=== PATIENT | female | born 1935 | race Caucasian/White ===

== ENCOUNTER 2017-10-25 22:50 | Inpatient (IN) | payer OTHER ==
[2017-10-26 00:36] LABS: HEMOGLOBIN 10.6 gm/dL (12-16); MANUAL DIFF REQUIRED? YES; RED CELL DISTRIBUTION WIDTH 19.6 % (11.5-20.0)
[2017-10-26 00:55] LABS: HEMATOCRIT 32.5 % (41.0-60); MEAN CELL VOLUME 95.2 fl (81-100); MEAN CORPUSCULAR HEMOGLOBIN 31.1 pg (27.0-31.0); MEAN CORPUSCULAR HGB CONC 32.7 pg (28.0-36.0); MEAN PLATELET VOLUME 7.9 fl; PLATELET COUNT 228 Th/cmm (150-400); RED BLOOD COUNT 3.41 Mil/cmm (3.80-5.20)
[2017-10-26 00:58] LABS: WHITE BLOOD COUNT 3.4 Th/cmm (4.8-10.8)
[2017-10-26 01:06] LABS: ANION GAP 6.4 (7.0-16.0); BUN - UREA NITROGEN 15 mg/dL (7-25); CALCIUM SERUM 8.6 mg/dL (8.6-10.3); CHLORIDE 90 mEq/L (98-107); CREATININE - SERUM 0.6 mg/dL (0.6-1.2); GLUCOSE 96 mg/dL (70-105); POTASSIUM SERUM 4.3 mEq/L (3.5-5.1); SODIUM SERUM 133 mEq/L (136-145)
[2017-10-26 01:20] LABS: CARBON DIOXIDE 40.9 mEq/L (21.0-31.0)
[2017-10-26] MEDS ORDERED: Haloperidol Lactate 5 mg/mL 1mL Vial IM STA (01:54)
[2017-10-26] MEDS ORDERED: Haloperidol Lactate 5 mg/mL 1mL Vial ONE (01:54)
[2017-10-26 02:42] LABS: BAND NEUTROPHILE 2 % (0-10); EOSINOPHIL 2 % (0-5); LYMPHOCYTE 18 % (20-50); MONOCYTE 10 % (2-10); NEUTROPHILS 68 % (40-80); PLATELET ESTIMATE ADEQUATE (NORMAL); TOTAL CELLS COUNTED 100
--- NOTE | 2017-10-26 03:00 | ED Physician Chart ---
ED Chief Complaint/HPI - Patient Information Date Seen:: 10/26/17 Time Seen:: 02:59 Chief Complaint:: Skin lesions History of Present Illness:: 82 yo female was brought from [facility] to ER for evaluation of skin lesions on the RLQ abdomen for a few days which were suspected as shingles. Allergies:: Allergies Allergy/AdvReac Type Severity Reaction Status Date / Time Sulfa (Sulfonamide Allergy Verified 10/25/17 23:58 Antibiotics) Vitals:: Vital Signs - 8 hr 10/25/17 23:25 Temp 98.2 F HR 88 RR 18 BP 133/73 O2 Sat % 100 ED Review of Systems - Review of Systems General/Constitutional: No fever, Weakness Skin: Skin lesions, Rash Head: No headache Eyes: No pain ENT: No nasal drainage Neck: No neck pain Cardio Vascular: No chest pain Pulmonary: No SOB GI: No nausea, No vomiting Musculoskeletal: No bone or joint pain Neurological: No focal symptoms ED Past Medical History - Past Medical History Past Medical History: HTN, Asthma/COPD, Thyroid disorder, Other (A-FIB, DYSPHAGIA, ULCERATIVE COLITIIS, DYSPNEA, RA) Social History: Non Smoker, No Alcohol, No Drug Use Family Medical History - Family Member Mother History Unknown: Yes ED Physical Exam - Physical Examination General/Constitutional: Awake Head: Atraumatic Eyes: PERRL ENMT: Nasal exam nl Neck: No nuchal rigidity Respiratory: No Wheeze/Rhonchi/Rales Cardio Vascular: RRR, No murmur, gallop, rubs, NL S1 S2 GI: No tenderness/rebounding/guarding Other GI comments:: RLQ, erythematous and small lesions Extremities: Full ROM Neuro/Psych: No focal deficits ED Labs/Radiology/EKG Results - Lab Results Results: Laboratory Tests 10/26/17 10/26/17 10/26/17 00:25 00:25 00:25 WBC 3.4 L RBC 3.41 L Hgb 10.6 L Hct 32.5 L MCV 95.2 MCH 31.1 H MCHC Differential 32.7 RDW 19.6 Plt Count 228 MPV 7.9 Band Neutrophils % 2 Neutrophils (Manual) 68 Lymphocytes 18 L Monocytes 10 Eosinophils 2 Platelet Estimate ADEQUATE Sodium 133 L Potassium 4.3 Chloride 90 L Carbon Dioxide 40.9 H Anion Gap 6.4 L BUN 15 Creatinine 0.6 Est GFR ( Amer) TNP Est GFR (Non-Af Amer) TNP BUN/Creatinine Ratio 25.0 Glucose 96 Whole Bld Lactic Acid 1.20 Calcium 8.6 ED Assessment - Assessment General Assessment: Hyponatremia Leukopenia Anemia of chronic disease Skin lesions possible shingles Agitation Assessment/Comments:: CBC, BMP, UA Haldol NS 1L iv bolus Caladryl lotion Admit to med surg for further evaluation and management ED Septic Shock - . Is Septic Shock (SBP<90, OR Lactate>4 mmol\L) present?: No - <6hrs of presentation: Vital Signs: Vital Signs - 8 hr 10/25/ 23:25 Temp 98.2 F HR 88 RR 18 BP 133/73 O2 Sat % 100 ED Reassessment (Disposition) - Reassessment Reassessment Condition:: Unchanged - Patient Disposition Discharge/Transfer:: Acute Care w/in this hosp Admitting Medical Physician:: Yissel Wills ED Discharge Plan - Patient Disposition Admit/Discharge/Transfer: Acute Care w/in this hosp
[2017-10-26] MEDS ORDERED: Sodium Chloride 0.9% 1,000 ML IV ONE (03:21)
[2017-10-26] MEDS: Sodium Chloride 0.9% 1,000 ML IV SCH (06:50)
[2017-10-26 07:08] LABS: CHOLESTEROL 99 mg/dL (<200); CREATININE KINASE 19 U/L (30-223); HDL -HIGH DENSITY LIPOPROTEIN 41 mg/dL (23-92); TRIGLYCERIDES 78 mg/dL (<150)
[2017-10-26] MEDS ORDERED: Pneumococcal Vaccine 0.5 mL Vial IM ONE (07:38)
[2017-10-26] MEDS ORDERED: Fleet Enema 135 mL RC PRN (08:27)
[2017-10-26] MEDS ORDERED: Non-Formulary Item 1 EA (Albuterol Sulfate [Proair Hfa] 2 PUFF) IH PRN (08:27)
[2017-10-26] MEDS ORDERED: Magnesium Hydroxide (MOM) 30 mL UDC PO PRN (08:27)
[2017-10-26] MEDS ORDERED: Albuterol Nebulizer 2.5mg/3mL HHN PRN (08:39)
[2017-10-26] MEDS ORDERED: Non-Formulary Item 1 EA (Fluticasone/Salmeterol [Advair 250-50 Diskus] 1 PUFF) INH SCH (09:00)
[2017-10-26] MEDS ORDERED: Non-Formulary Item 1 EA (Cranberry Fruit Concentrate [Cranberry] 450 MG) PO SCH (09:00)
[2017-10-26] MEDS: Mesalamine 250 mg ER Cap PO SCH ×2 (10:44→17:28)
[2017-10-26] MEDS: Potassium Chloride 20 mEq ER Tab PO SCH (10:45)
[2017-10-26] MEDS: Multivitamin Tab PO SCH (10:45)
--- NOTE | 2017-10-26 14:09 | Consultation ---
Consult Note - Consult Note Service Date: 10/26/17 Referring Physician: Yissel Wills Consult Note: PHYSICIAN Consultation Note: Date of Admission: 10/26/17 Purpose of Consultation: Rash. Chief Complaint: Patient ANG ALCANTAR was admitted to location Medical/ Surgical Unit I with CARDIOMYOPATHY,ANEMIA. History of Present Illness:83-year-old male with a past medical history of atrial fibrillation, dysphagia, difficulty walking, hypothyroidism, hypertension , hyperlipidemia, unspecified heart failure, ulcerative colitis, COPD, rheumatoid arthritis brought from nursing facility for evaluation of rash in right lower quadrant of the abdomen. Past Medical History: atrial fibrillation, dysphagia, difficulty walking, hypothyroidism, hypertension, hyperlipidemia, unspecified heart failure, ulcerative colitis, COPD, rheumatoid arthritis Allergies Allergy/AdvReac Type Severity Reaction Status Date / Time Sulfa (Sulfonamide Allergy Verified 10/25/17 23:58 Antibiotics) Vital Signs Temp 96.4 F 10/26/17 12:35 Pulse 70 10/26/17 12:35 Resp 18 10/26/17 12:35 BP 111/70 10/26/17 12:35 Pulse Ox 100 10/26/17 12:35 Intake & Output 10/25/17 10/26/17 10/26/17 18:59 06:59 18:59 Weight (lbs) 45.359 kg Other: # Voids 1 # Bowel Movements 0 Weight Source Bedscale Laboratory Results - last 24 hr 10/26/17 10/26/17 10/26/17 05:46 06:15 06:15 POC Glucose 86 Creatine Kinase 19 L Troponin I 0.02 Triglycerides 78 Cholesterol 99 LDL Cholesterol Direct 47 L HDL Cholesterol 41 TSH 10/26/17 06:15 POC Glucose Creatine Kinase Troponin I Triglycerides Cholesterol LDL Cholesterol Direct HDL Cholesterol TSH 8.79 H Home Medication Medication Instructions Recorded Type Acetaminophen [Tylenol] 650 mg PO Q4HR PRN 10/26/17 History Albuterol Sulfate [Proair Hfa] 2 puff IH Q4HR PRN 10/26/17 History Amiodarone [Cordarone] 200 mg PO DAILY 10/26/17 History Bisacodyl [Dulcolax 10 Mg Supp] 10 mg RC DAILY PRN 10/26/17 History Cranberry Fruit Concentrate 450 mg PO DAILY 10/26/17 History [Cranberry] Docusate Sodium [Colace] 100 mg PO DAILY 10/26/17 History Estrogens, Conjugated [Premarin] 0.9 mg PO DAILY 10/26/17 History Fleet Enema [Fleet Enema] 135 ml RC DAILY PRN 10/26/17 History Fluticasone/Salmeterol [Advair 1 puff INH BID 10/26/17 History 250-50 Diskus] Folic Acid [Folate*] 1 mg PO DAILY 10/26/17 History Furosemide 10 mg PO DAILY 10/26/17 History Levothyroxine [Synthroid] 0.1 mg PO QDAC 10/26/17 History Magnesium Hydroxide [Milk of 30 ml PO HS PRN 10/26/17 History Magnesia] Mesalamine [Pentasa] 500 mg PO BID 10/26/17 History Methotrexate [Methotrexate*] 10 mg PO Q7D 10/26/17 History Multivitamin [Theragran] 1 tab PO DAILY 10/26/17 History Potassium Chloride 20 meq PO DAILY 10/26/17 History Rivaroxaban [Xarelto] 15 mg PO DAILY 10/26/17 History Rosuvastatin Calcium 1 tab PO HS 10/26/17 History Zolpidem Tartrate 10 mg PO HS 10/26/17 History Current Medications Generic Name Dose Route Start Last Admin Trade Name Freq PRN Reason Stop Dose Admin Acetaminophen 650 mg 10/26/17 08:27 Tylenol PO 12/25/17 08:26 Q4H PRN Pain or Fever >101 Albuterol Sulfate 2.5 mg 10/26/17 08:39 Albuterol 2.5mg/3ml Neb [facility] 12/25/17 08:38 Q4HRT PRN Shortness of Breath Albuterol Sulfate 2.5 mg 10/26/17 13:00 Albuterol 2.5mg/3ml Neb Ud N 12/25/17 12:59 Q6HRT [facility] Amiodarone HCl 200 mg 10/26/17 09:00 10/26/17 10:44 Cordarone PO 12/25/17 08:59 Not Given DAILY [facility]AINE Atorvastatin Calcium 20 mg 10/26/17 21:00 Lipitor PO 12/25/17 20:59 HS [facility]AINE Bisacodyl 10 mg 10/26/17 08:27 Dulcolax 10 Mg Supp RC 12/25/17 08:26 DAILY PRN Constipation Budesonide 0.5 mg 10/26/17 19:00 Pulmicort HHN 12/25/17 18:59 BIDRT [facility]AINE Diphenhydramine/Calamine/Camphor 1 appl 10/26/17 09:00 10/26/17 10:50 Caladryl Lotion TP 12/25/17 08:59 1 appl BID [facility]AINE Administration Docusate Sodium 100 mg 10/26/17 09:00 10/26/17 10:44 Colace PO 12/25/17 08:59 Not Given DAILY [facility] Estrogens Conjugated 0.9 mg 10/26/17 09:00 10/26/17 10:30 Premarin PO 12/25/17 08:59 Not Given DAILY [facility] Folic Acid 1 mg 10/26/17 09:00 10/26/17 10:47 Folate PO 12/25/17 08:59 Not Given DAILY [facility] Furosemide 10 mg 10/26/17 09:00 10/26/17 10:43 Lasix PO 12/25/17 08:59 Not Given DAILY [facility] Sodium Chloride 1,000 mls @ 50 mls/hr 10/26/17 05:10 10/26/17 06:50 Nacl 0.9% IV 12/25/17 05:09 50 mls/hr .Q20H [facility]AINE Administration Levothyroxine Sodium 0.1 mg 10/27/17 07:30 Synthroid PO 12/26/17 07:29 QDAC [facility] Magnesium Hydroxide 30 ml 10/26/17 08:27 Milk Of Magnesia PO 12/25/17 08:26 HS PRN Constipation Mesalamine 500 mg 10/26/17 09:00 10/26/17 10:44 Pentasa PO 12/25/17 08:59 Not Given BID [facility] Methotrexate 10 mg 11/01/17 09:00 Methotrexate PO 12/31/17 08:59 Th@0900 [facility] Protocol Multivitamins/Vitamin C 1 tab 10/26/17 09:00 10/26/17 10:45 Theragran PO 12/25/17 08:59 Not Given DAILY [facility] Potassium Chloride 20 meq 10/26/17 09:00 10/26/17 10:45 Klor-Con PO 12/25/17 08:59 Not Given DAILY [facility] Rivaroxaban 15 mg 10/26/17 17:00 Xarelto PO 12/25/17 16:59 DAILY@1700 [facility] Sodium Phosphate 135 ml 10/26/17 08:27 Fleet Enema RC 12/25/17 08:26 DAILY PRN Constipation Zolpidem Tartrate 10 mg 10/26/17 08:46 Ambien PO 12/25/17 08:45 HS PRN Insomnia Review of Systems: A 12 point ROS was reviewed with the pertinent positive and negatives noted in the HPI. Social History Smoking Status Unknown if ever smoked Family Medical History Unknown. Physical Exam: General: Comfortable lying in bed not in acute distress. HEENT: Head: Normocephalic. Atraumatic. Face: Symmetrical. Oral cavity: Moist , pink tongue. Eyes: Pallor is present icterus. Neck: Supple, no JVD. No use of accessory neck muscles. Cardio: S1 and S2 within normal limits regular rhythm no murmur no gallop Respiratory: Vesicular breath sound no crackles or wheezing Abdominal: Soft, nontender nondistended pulses present. Genital/Urinary: Deferred Extremities: No cyanosis no clubbing no edema Neurological: Alert and awake and oriented. Skin: Some laceration wounds in the right leg. Right lower quadrant of abdomen : There are no itchy, nontender, tiny small pinkish red colored lesions in a group with erythematous base. Assessment: 1. Right lower quadrant abdominal rash, not typical of shingles. No vesicular lesion. However, as there is dermatomal distribution and the characteristic of rash, cannot rule out shingles. 2. Depression. 3. Hypothymism. 4. Hyperlipidemia Plan: Give oral acyclovir. Thank you, Dr Wills for involving me in taking care of Ms Alcantar. Johnson Colon Devesh N., M.D. [id number]
[2017-10-26] MEDS: Albuterol Nebulizer 2.5mg/3mL HHN SCH (19:00)
--- NOTE | 2017-10-26 19:21 | Consultation ---
DATE OF CONSULTATION: 10/26/2017 PATIENT OF: Dr. Wills. HISTORY AND PHYSICAL: This is an 82-year-old female patient who was brought from [facility] due to rash in the right groin. Possible shingles. PAST MEDICAL HISTORY: The patient has a history of cardiomyopathy, congestive heart failure, systolic dysfunction, chronic atrial fibrillation, dysphagia, protein-calorie malnutrition, hyperlipidemia, hypertension, hypothyroidism, COPD, ulcerative colitis, and rheumatoid arthritis. FAMILY HISTORY: Unremarkable. SOCIAL HISTORY: No history of smoking, alcohol abuse. ALLERGIES: None. PHYSICAL EXAMINATION: VITAL SIGNS: Blood pressure 138/70, pulse 70, and respirations 20. HEAD: Normocephalic. No lumps or bumps. EYES: Pupils are equal and reactive to light. Fundi show AV nicking, sclerae white, conjunctivae pink. NECK: Carotid 2+. Normal upstroke. JVD 10 cm above sternal angle. Thyroid not palpable. Lymph nodes not palpable. CHEST: Shows increased AP diameter. No kyphosis or scoliosis. LUNGS: Bilateral rales. Decreased breath sounds both the bases. HEART: PMI sixth intercostal space with lateral to midclavicular line. S1 irregular. S2, S3, S4. Soft systolic murmur. ABDOMEN: Soft. Liver and spleen not palpable. No organomegaly. Bowel sounds active. NEUROLOGIC: No focal neurological deficit. EXTREMITIES: Peripheral pulses 1+. No pedal edema. CLINICAL IMPRESSION: Rash, right lower abdomen, etiology unknown; congestive heart failure; systolic dysfunction; chronic cardiomyopathy; atrial fibrillation; dysphagia; protein-calorie malnutrition; hyperlipidemia; hypertension; hypothyroidism; COPD; ulcerative colitis; and rheumatoid arthritis. PLAN: We will get BNP level, echocardiogram and have Infectious Disease evaluation for the rash. JOB# [id number]
[2017-10-26] MEDS: Atorvastatin Calcium 10 MG TAB PO SCH (21:34)
--- NOTE | 2017-10-26 21:48 | History and Physical ---
History of Present Illness - HPI Chief Complaint: rash HPI: This is a 83-year-old male with a past medical history of atrial fibrillation, dysphagia, difficulty walking, hypothyroidism, hypertension, hyperlipidemia, unspecified heart failure, ulcerative colitis, COPD, rheumatoid arthritis brought from nursing facility for evaluation of rash in right lower quadrant of the abdomen. = = Vital Signs: Last Vital Signs Temp 96.4 F 10/26/17 16:00 Pulse 80 10/26/17 16:00 Resp 18 10/26/17 16:00 BP 140/71 10/26/17 16:00 Pulse Ox 100 10/26/17 16:00 Past Medical History Other History: atrial fibrillation, dysphagia, difficulty walking, hypothyroidism, hypertension , hyperlipidemia, unspecified heart failure, ulcerative colitis, COPD, rheumatoid arthritis Family Medical History - Family Member Mother History Unknown: Yes Social History Smoke: No Alcohol: None Drugs: None Lives: Longterm - Medications Home Medications: Home Medication Medication Instructions Recorded Type Acetaminophen [Tylenol] 650 mg PO Q4HR PRN 10/26/17 History Albuterol Sulfate [Proair Hfa] 2 puff IH Q4HR PRN 10/26/17 History Amiodarone [Cordarone] 200 mg PO DAILY 10/26/17 History Bisacodyl [Dulcolax 10 Mg Supp] 10 mg RC DAILY PRN 10/26/17 History Cranberry Fruit Concentrate 450 mg PO DAILY 10/26/17 History [Cranberry] Docusate Sodium [Colace] 100 mg PO DAILY 10/26/17 History Estrogens, Conjugated [Premarin] 0.9 mg PO DAILY 10/26/17 History Fleet Enema [Fleet Enema] 135 ml RC DAILY PRN 10/26/17 History Fluticasone/Salmeterol [Advair 1 puff INH BID 10/26/17 History 250-50 Diskus] Folic Acid [Folate*] 1 mg PO DAILY 10/26/17 History Furosemide 10 mg PO DAILY 10/26/17 History Levothyroxine [Synthroid] 0.1 mg PO QDAC 10/26/17 History Magnesium Hydroxide [Milk of 30 ml PO HS PRN 10/26/17 History Magnesia] Mesalamine [Pentasa] 500 mg PO BID 10/26/17 History Methotrexate [Methotrexate*] 10 mg PO Q7D 10/26/17 History Multivitamin [Theragran] 1 tab PO DAILY 10/26/17 History Potassium Chloride 20 meq PO DAILY 10/26/17 History Rivaroxaban [Xarelto] 15 mg PO DAILY 10/26/17 History Rosuvastatin Calcium 1 tab PO HS 10/26/17 History Zolpidem Tartrate 10 mg PO HS 10/26/17 History - Allergies Allergies/Adverse Reactions: Allergies Allergy/AdvReac Type Severity Reaction Status Date / Time Sulfa (Sulfonamide Allergy Verified 10/25/17 23:58 Antibiotics) Review of Systems - Review of Systems Constitutional: Report: No Significant Eyes: Report: No Significant ENT: Report: No Significant Respiratory: Report: No Significant Cardiovascular: Report: No Significant Skin: Report: Rash Neurological: Report: No Significant Physical Exam - Physical Exam HEENT: Report: Ears Nose Throat within normal limits Neck: Report: Within normal limits Abdomen: Report: Tender to palpation Skin: Report: Skin Rash noted - Lab Results All Lab Results last 24 hours: Laboratory Results - last 24 hr 10/26/17 10/26/17 10/26/17 05:46 06:15 06:15 POC Glucose 86 Creatine Kinase 19 L Troponin I 0.02 Triglycerides 78 Cholesterol 99 LDL Cholesterol Direct 47 L HDL Cholesterol 41 TSH 10/26/17 10/26/17 10/26/17 06:15 14:15 14:15 POC Glucose Creatine Kinase 11 L Troponin I 0.01 Triglycerides Cholesterol LDL Cholesterol Direct HDL Cholesterol TSH 8.79 H - Assessment Assessment: 1. Right lower quadrant abdominal rash r/o shingles 2. Depression. 3. Hypothymism. 4. Hyperlipidemia - Plan Plan: id consult continue current orders
[2017-10-27] MEDS: Albuterol Nebulizer 2.5mg/3mL HHN SCH ×4 (01:25→19:34)
[2017-10-27] MEDS: Levothyroxine 0.1 Mg Tab PO SCH (06:40)
[2017-10-27 07:14] LABS: ANION GAP 8.6 (7.0-16.0); BUN - UREA NITROGEN 12 mg/dL (7-25); CALCIUM SERUM 8.1 mg/dL (8.6-10.3); CARBON DIOXIDE 35.2 mEq/L (21.0-31.0); CHLORIDE 95 mEq/L (98-107); CREATININE - SERUM 0.5 mg/dL (0.6-1.2); GLUCOSE 79 mg/dL (70-105); POTASSIUM SERUM 3.8 mEq/L (3.5-5.1); SODIUM SERUM 135 mEq/L (136-145)
[2017-10-27] MEDS: Budesonide 0.5 Mg/2 mL Ud HHN SCH ×2 (07:51→19:34)
[2017-10-27] MEDS: Mesalamine 250 mg ER Cap PO SCH ×2 (09:16→17:07)
[2017-10-27] MEDS: Potassium Chloride 20 mEq ER Tab PO SCH (09:17)
[2017-10-27] MEDS: Multivitamin Tab PO SCH (09:17)
[2017-10-27] MEDS: Atorvastatin Calcium 10 MG TAB PO SCH (22:19)
[2017-10-28] MEDS: Albuterol Nebulizer 2.5mg/3mL HHN SCH ×3 (01:46→19:19)
--- NOTE | 2017-10-28 02:50 | Infectious Disease Prog Note ---
Infectious Disease Subjective - Review of Systems Service Date: 10/27/17 Subjective: No change, no fever. Infectious Disease Objective - Results Result Diagrams: 10/26/17 00:25 10/27/17 06:10 Recent Labs: Laboratory Last Values WBC 3.4 Th/cmm (4.8-10.8) L 10/26/17 00:25 RBC 3.41 Mil/cmm (3.80-5.20) L 10/26/17 00:25 Hgb 10.6 gm/dL (12-16) L 10/26/17 00:25 Hct 32.5 % (41.0-60) L 10/26/17 00:25 MCV 95.2 fl (81-100) 10/26/17 00:25 MCH 31.1 pg (27.0-31.0) H 10/26/17 00:25 MCHC Differential 32.7 pg (28.0-36.0) 10/26/17 00:25 RDW 19.6 % (11.5-20.0) 10/26/17 00:25 Plt Count 228 Th/cmm (150-400) 10/26/17 00:25 MPV 7.9 fl 10/26/17 00:25 Band Neutrophils % 2 % (0-10) 10/26/17 00:25 Neutrophils (Manual) 68 % (40-80) 10/26/17 00:25 Lymphocytes 18 % (20-50) L 10/26/17 00:25 Monocytes 10 % (2-10) 10/26/17 00:25 Eosinophils 2 % (0-5) 10/26/17 00:25 Platelet Estimate ADEQUATE (NORMAL) 10/26/17 00:25 Sodium 135 mEq/L (136-145) L 10/27/17 06:10 Potassium 3.8 mEq/L (3.5-5.1) 10/27/17 06:10 Chloride 95 mEq/L (98-107) L 10/27/17 06:10 Carbon Dioxide 35.2 mEq/L (21.0-31.0) H 10/27/17 06:10 Anion Gap 8.6 (7.0-16.0) 10/27/17 06:10 BUN 12 mg/dL (7-25) 10/27/17 06:10 Creatinine 0.5 mg/dL (0.6-1.2) L 10/27/17 06:10 Est GFR ( Amer) TNP 10/27/17 06:10 Est GFR (Non-Af Amer) TNP 10/27/17 06:10 BUN/Creatinine Ratio 24.0 10/27/17 06:10 Glucose 79 mg/dL (70-105) 10/27/17 06:10 POC Glucose 86 MG/DL (70 - 105) 10/26/17 05:46 Whole Bld Lactic Acid 1.20 mmol/L (0.60-1.99) 10/26/17 00:25 Calcium 8.1 mg/dL (8.6-10.3) L 10/27/17 06:10 Creatine Kinase < 10 U/L (30-223) L 10/26/17 22:10 Troponin I 0.01 ng/mL (0.01-0.05) 10/26/17 22:10 B-Natriuretic Peptide 373.0 pg/mL (5.0-100.0) H 10/27/17 06:10 Triglycerides 78 mg/dL (<150) 10/26/17 06:15 Cholesterol 99 mg/dL (<200) 10/26/17 06:15 LDL Cholesterol Direct 47 mg/dL (75-193) L 10/26/17 06:15 HDL Cholesterol 41 mg/dL (23-92) 10/26/17 06:15 TSH 8.79 uIU/ml (0.34-5.60) H 10/26/17 06:15 - Physical Exam Vitals and I&O: Vital Signs Temp 97.4 F 10/27/17 15:44 Pulse 91 10/28/17 01:47 Resp 18 10/28/17 01:47 BP 121/71 10/27/17 15:44 Pulse Ox 95 10/28/17 01:47 Intake & Output 10/27/17 10/27/17 10/28/17 06:59 18:59 06:59 Intake Total 450 Balance 450 Weight (lbs) 47.491 kg 47.446 kg Intake: Oral 450 Other: # Voids 2 3 # Bowel Movements 0 2 Stool Characteristics Soft Soft Weight Source Bedscale Bedscale Active Medications: Current Medications Acetaminophen (Tylenol) 650 mg PO Q4H PRN PRN Reason: Pain or Fever >101 Stop: 07/24/18 08:26 Acyclovir (Zovirax) 400 mg PO 5XD [facility]AINE Stop: 12/25/17 17:59 Last Admin: 10/27/17 22:19 Dose: 400 mg Albuterol Sulfate (Albuterol 2.5mg/3ml Neb Ud) 2.5 mg HHN Q4HRT PRN PRN Reason: Shortness of Breath Stop: 12/25/17 08:38 Albuterol Sulfate (Albuterol 2.5mg/3ml Neb Ud) 2.5 mg HHN Q6HRT [facility]AINE Stop: 12/25/17 12:59 Last Admin: 10/28/17 01:46 Dose: 2.5 mg Amiodarone HCl (Cordarone) 200 mg PO DAILY [facility] Stop: 12/25/17 08:59 Last Admin: 10/27/17 09:16 Dose: 200 mg Atorvastatin Calcium (Lipitor) 20 mg PO HS [facility] Stop: 12/25/17 20:59 Last Admin: 10/27/17 22:19 Dose: 20 mg Bisacodyl (Dulcolax 10 Mg Supp) 10 mg RC DAILY PRN PRN Reason: Constipation Stop: 12/25/17 08:26 Budesonide (Pulmicort) 0.5 mg HHN BIDRT [facility]INE Stop: 12/25/17 18:59 Last Admin: 10/27/17 19:34 Dose: 0.5 mg Diphenhydramine/Calamine/Camphor (Caladryl Lotion) 1 appl TP BID [facility] Stop: 12/25/17 08:59 Last Admin: 10/27/17 17:08 Dose: 1 appl Docusate Sodium (Colace) 100 mg PO DAILY [facility] Stop: 12/25/17 08:59 Last Admin: 10/27/17 09:16 Dose: 100 mg Estrogens Conjugated (Premarin) 0.9 mg PO DAILY [facility] Stop: 12/25/17 08:59 Last Admin: 10/27/17 13:24 Dose: 0.9 mg Folic Acid (Folate) 1 mg PO DAILY [facility] Stop: 12/25/17 08:59 Last Admin: 10/27/17 09:17 Dose: 1 mg Furosemide (Lasix) 10 mg PO DAILY [facility] Stop: 12/25/17 08:59 Last Admin: 10/27/17 09:17 Dose: 10 mg Sodium Chloride (Nacl 0.9%) 1,000 mls @ 50 mls/hr IV .Q20H [facility] Stop: 12/25/17 05:09 Last Infusion: 10/26/17 17:56 Dose: 50 mls/hr Levothyroxine Sodium (Synthroid) 0.1 mg PO QDAC [facility] Stop: 12/26/17 07:29 Last Admin: 10/27/17 06:40 Dose: 0.1 mg Magnesium Hydroxide (Milk Of Magnesia) 30 ml PO HS PRN PRN Reason: Constipation Stop: 12/25/17 08:26 Mesalamine (Pentasa) 500 mg PO BID [facility] Stop: 12/25/17 08:59 Last Admin: 10/27/17 17:07 Dose: 500 mg Methotrexate (Methotrexate) 10 mg PO Th@0900 [facility] PRN Reason: Protocol Stop: 12/31/17 08:59 Multivitamins/Vitamin C (Theragran) 1 tab PO DAILY [facility] Stop: 12/25/17 08:59 Last Admin: 10/27/17 09:17 Dose: 1 tab Mupirocin (Bactroban Oint) 1 appl NS BID [facility] Stop: 11/01/17 17:01 Potassium Chloride (Klor-Con) 20 meq PO DAILY [facility] Stop: 12/25/17 08:59 Last Admin: 10/27/17 09:17 Dose: 20 meq Rivaroxaban (Xarelto) 15 mg PO DAILY@1700 [facility] Stop: 12/25/17 16:59 Last Admin: 10/27/17 17:08 Dose: 15 mg Sodium Phosphate (Fleet Enema) 135 ml RC DAILY PRN PRN Reason: Constipation Stop: 12/25/17 08:26 Zolpidem Tartrate (Ambien) 10 mg PO HS PRN PRN Reason: Insomnia Stop: 12/25/17 08:45 Last Admin: 10/27/17 22:18 Dose: 10 mg General: no acute distress, well developed, well nourished HEENT: atraumatic, normocephalic, moist mucous membrane Neck: supple, no thyromegaly Cardiovascular: S1S2, regular Lungs: clear to auscultation bilaterally, clear to percussion Abdomen: soft, no tender, no distended, no mass, no hepatomegaly Extremities: no cyanosis, no clubbing, no edema Neurological: awake, alert Skin: intact Infectious Disease Assmt/Plan - Assessment Assessment: 1. Right lower quadrant abdominal rash, not typical of shingles. No vesicular lesion. However, as there is dermatomal distribution and the characteristic of rash, cannot rule out shingles. 2. Depression. 3. Hypothymism. 4. Hyperlipidemia - Plan Plan: Continue Acyclovir. Nutritional Asmnt/Malnutr-PDOC - Dietary Evaluation Malnutrition Findings (Please click <Entered> for more info): Nutritional Asmnt/Malnutrition Start: 10/26/17 17: 09 Text: Status: Complete Freq: Document 10/26/17 17:09 [email or web address] (Rec: 10/26/17 17:27 [id number]) Nutritional Asmnt/Malnutrition Patient General Information Nutritional Screening High Risk Diagnosis cardiomyopathy, anemia Pertinent Medical Hx/Surgical Hx medical hx not indicated in ER physician report at this time Subjective Information Pt seen lying in bed at time of visit, seemed drowsy, not able to comminucate. Pureed diet started at lunch. Current Diet Order/ Nutrition Support pureed GI Symptoms Skin Integrity/Comment: skin discorloration to lower leg, rash reddened Estimated Nutritional Goals BEE in Kcals: Using Current wt Calories/Kcals/Kg 27-32 Kcals Calculated [id number] Protein: Using Current wt Protein g/k-1.2 Protein Calculated 45-54 Fluid: ml 1215-1440ml (1ml/kcal) Nutritional Problem No current Nutrition Prob Problem No nutrition problem at this time Malnutrition Alert Protein-Calorie Malnutrition N/A Is there a minimum of two criteria No selected? Query Text:Check all the applicable criteria. A minimum of two criteria are recommended for diagnosis of either severe or non-severe malnutrition. Intervention/Recommendation Comments 1. Continue with current diet as ordered. Assist pt with meal as needed. 2. Monitor PO intake, wt, labs and skin integrity 3. F/U as high risk in 2-3 days, 10/28-10/29 Expected Outcomes/Goals Expected Outcomes/Goals 1. PO intake to meet at least 75% of nutritional needs. 2. Wt stability, skin to remain intact, labs to approach WNL.
[2017-10-28] MEDS: Levothyroxine 0.1 Mg Tab PO SCH (06:33)
[2017-10-28] MEDS: Budesonide 0.5 Mg/2 mL Ud HHN SCH ×2 (07:58→19:18)
--- NOTE | 2017-10-28 11:39 | General Progress Note ---
Subjective - Review of Systems Events since last encounter: no change no fever Objective - Results Result Diagrams: 10/26/17 00:25 10/27/17 06:10 Recent Labs: Laboratory Last Values WBC 3.4 Th/cmm (4.8-10.8) L 10/26/17 00:25 RBC 3.41 Mil/cmm (3.80-5.20) L 10/26/17 00:25 Hgb 10.6 gm/dL (12-16) L 10/26/17 00:25 Hct 32.5 % (41.0-60) L 10/26/17 00:25 MCV 95.2 fl (81-100) 10/26/17 00:25 MCH 31.1 pg (27.0-31.0) H 10/26/17 00:25 MCHC Differential 32.7 pg (28.0-36.0) 10/26/17 00:25 RDW 19.6 % (11.5-20.0) 10/26/17 00:25 Plt Count 228 Th/cmm (150-400) 10/26/17 00:25 MPV 7.9 fl 10/26/17 00:25 Band Neutrophils % 2 % (0-10) 10/26/17 00:25 Neutrophils (Manual) 68 % (40-80) 10/26/17 00:25 Lymphocytes 18 % (20-50) L 10/26/17 00:25 Monocytes 10 % (2-10) 10/26/17 00:25 Eosinophils 2 % (0-5) 10/26/17 00:25 Platelet Estimate ADEQUATE (NORMAL) 10/26/17 00:25 Sodium 135 mEq/L (136-145) L 10/27/17 06:10 Potassium 3.8 mEq/L (3.5-5.1) 10/27/17 06:10 Chloride 95 mEq/L (98-107) L 10/27/17 06:10 Carbon Dioxide 35.2 mEq/L (21.0-31.0) H 10/27/17 06:10 Anion Gap 8.6 (7.0-16.0) 10/27/17 06:10 BUN 12 mg/dL (7-25) 10/27/17 06:10 Creatinine 0.5 mg/dL (0.6-1.2) L 10/27/17 06:10 Est GFR ( Amer) TNP 10/27/17 06:10 Est GFR (Non-Af Amer) TNP 10/27/17 06:10 BUN/Creatinine Ratio 24.0 10/27/17 06:10 Glucose 79 mg/dL (70-105) 10/27/17 06:10 POC Glucose 86 MG/DL (70 - 105) 10/26/17 05:46 Whole Bld Lactic Acid 1.20 mmol/L (0.60-1.99) 10/26/17 00:25 Calcium 8.1 mg/dL (8.6-10.3) L 10/27/17 06:10 Creatine Kinase < 10 U/L (30-223) L 10/26/17 22:10 Troponin I 0.01 ng/mL (0.01-0.05) 10/26/17 22:10 B-Natriuretic Peptide 373.0 pg/mL (5.0-100.0) H 10/27/17 06:10 Triglycerides 78 mg/dL (<150) 10/26/17 06:15 Cholesterol 99 mg/dL (<200) 10/26/17 06:15 LDL Cholesterol Direct 47 mg/dL (75-193) L 10/26/17 06:15 HDL Cholesterol 41 mg/dL (23-92) 10/26/17 06:15 TSH 8.79 uIU/ml (0.34-5.60) H 10/26/17 06:15 - Physical Exam Vitals and I&O: Vital Signs Temp 98.0 F 10/28/17 07:43 Pulse 71 10/28/17 08:11 Resp 18 10/28/17 08:11 BP 136/80 10/28/17 07:43 Pulse Ox 96 10/28/17 08:11 Intake & Output 10/27/17 10/28/17 10/28/17 18:59 06:59 18:59 Intake Total 450 200 Balance 450 200 Weight (lbs) 47.446 kg 46.72 kg Intake: Oral 450 200 Other: # Voids 3 3 # Bowel Movements 2 Stool Characteristics Soft Weight Source Bedscale Bedscale Active Medications: Current Medications Acetaminophen (Tylenol) 650 mg PO Q4H PRN PRN Reason: Pain or Fever >101 Stop: 12/25/17 08:26 Acyclovir (Zovirax) 400 mg PO 5XD [facility] Stop: 12/25/17 17:59 Last Admin: 10/28/17 06:33 Dose: 400 mg Albuterol Sulfate (Albuterol 2.5mg/3ml Neb Ud) 2.5 mg HHN Q4HRT PRN PRN Reason: Shortness of Breath Stop: 12/25/17 08:38 Albuterol Sulfate (Albuterol 2.5mg/3ml Neb Ud) 2.5 mg HHN Q6HRT [facility] Stop: 12/25/17 12:59 Last Admin: 10/28/17 07:57 Dose: 2.5 mg Amiodarone HCl (Cordarone) 200 mg PO DAILY [facility] Stop: 12/25/17 08:59 Last Admin: 10/27/17 09:16 Dose: 200 mg Atorvastatin Calcium (Lipitor) 20 mg PO HS [facility] Stop: 12/25/17 20:59 Last Admin: 10/27/17 22:19 Dose: 20 mg Bisacodyl (Dulcolax 10 Mg Supp) 10 mg RC DAILY PRN PRN Reason: Constipation Stop: 12/25/17 08:26 Budesonide (Pulmicort) 0.5 mg HHN BIDRT [facility] Stop: 12/25/17 18:59 Last Admin: 10/28/17 07:58 Dose: 0.5 mg Diphenhydramine/Calamine/Camphor (Caladryl Lotion) 1 appl TP BID [facility] Stop: 12/25/17 08:59 Last Admin: 10/27/17 17:08 Dose: 1 appl Docusate Sodium (Colace) 100 mg PO DAILY [facility] Stop: 12/25/17 08:59 Last Admin: 10/27/17 09:16 Dose: 100 mg Estrogens Conjugated (Premarin) 0.9 mg PO DAILY [facility] Stop: 12/25/17 08:59 Last Admin: 10/27/17 13:24 Dose: 0.9 mg Folic Acid (Folate) 1 mg PO DAILY [facility] Stop: 12/25/17 08:59 Last Admin: 10/27/17 09:17 Dose: 1 mg Furosemide (Lasix) 10 mg PO DAILY [facility] Stop: 12/25/17 08:59 Last Admin: 10/27/17 09:17 Dose: 10 mg Sodium Chloride (Nacl 0.9%) 1,000 mls @ 50 mls/hr IV .Q20H [facility] Stop: 12/25/17 05:09 Last Infusion: 10/26/17 17:56 Dose: 50 mls/hr Levothyroxine Sodium (Synthroid) 0.1 mg PO QDAC [facility] Stop: 12/26/17 07:29 Last Admin: 10/28/17 06:33 Dose: 0.1 mg Magnesium Hydroxide (Milk Of Magnesia) 30 ml PO HS PRN PRN Reason: Constipation Stop: 12/25/17 08:26 Mesalamine (Pentasa) 500 mg PO BID [facility] Stop: 12/25/17 08:59 Last Admin: 10/27/17 17:07 Dose: 500 mg Methotrexate (Methotrexate) 10 mg PO Th@0900 [facility] PRN Reason: Protocol Stop: 12/31/17 08:59 Multivitamins/Vitamin C (Theragran) 1 tab PO DAILY [facility] Stop: 12/25/17 08:59 Last Admin: 10/27/17 09:17 Dose: 1 tab Mupirocin (Bactroban Oint) 1 appl NS BID [facility] Stop: 11/01/17 17:01 Potassium Chloride (Klor-Con) 20 meq PO DAILY [facility] Stop: 12/25/17 08:59 Last Admin: 10/27/17 09:17 Dose: 20 meq Rivaroxaban (Xarelto) 15 mg PO DAILY@1700 [facility] Stop: 12/25/17 16:59 Last Admin: 10/27/17 17:08 Dose: 15 mg Sodium Phosphate (Fleet Enema) 135 ml RC DAILY PRN PRN Reason: Constipation Stop: 12/25/17 08:26 Zolpidem Tartrate (Ambien) 10 mg PO HS PRN PRN Reason: Insomnia Stop: 12/25/17 08:45 Last Admin: 10/27/17 22:18 Dose: 10 mg Assessment/Plan - Assessment Assessment: 1. Right lower quadrant abdominal rash r/o shingles 2. Depression. 3. Hypothymism. 4. Hyperlipidemia - Plan Plan: id consult continue current orders Nutritional Asmnt/Malnutr-PDOC - Dietary Evaluation Malnutrition Findings (Please click <Entered> for more info): Nutritional Asmnt/Malnutrition Start: 10/26/17 17: 09 Text: Status: Complete Freq: Document 10/26/17 17:09 LCHENG (Rec: 10/26/17 17:27 LCHENG [email or web address]) Nutritional Asmnt/Malnutrition Patient General Information Nutritional Screening High Risk Diagnosis cardiomyopathy, anemia Pertinent Medical Hx/Surgical Hx medical hx not indicated in ER physician report at this time Subjective Information Pt seen lying in bed at time of visit, seemed drowsy, not able to comminucate. Pureed diet started at lunch. Current Diet Order/ Nutrition Support pureed GI Symptoms Skin Integrity/Comment: skin discorloration to lower leg, rash reddened Estimated Nutritional Goals BEE in Kcals: Using Current wt Calories/Kcals/Kg 27-32 Kcals Calculated 3909-7125 Protein: Using Current wt Protein g/k-1.2 Protein Calculated 45-54 Fluid: ml 1215-1440ml (1ml/kcal) Nutritional Problem No current Nutrition Prob Problem No nutrition problem at this time Malnutrition Alert Protein-Calorie Malnutrition N/A Is there a minimum of two criteria No selected? Query Text:Check all the applicable criteria. A minimum of two criteria are recommended for diagnosis of either severe or non-severe malnutrition. Intervention/Recommendation Comments 1. Continue with current diet as ordered. Assist pt with meal as needed. 2. Monitor PO intake, wt, labs and skin integrity 3. F/U as high risk in 2-3 days, 10/28-10/29 Expected Outcomes/Goals Expected Outcomes/Goals 1. PO intake to meet at least 75% of nutritional needs. 2. Wt stability, skin to remain intact, labs to approach WNL.
[2017-10-28] MEDS: Mesalamine 250 mg ER Cap PO SCH (11:53)
[2017-10-28] MEDS: Multivitamin Tab PO SCH (11:54)
[2017-10-28] MEDS: Potassium Chloride 20 mEq ER Tab PO SCH (11:55)
--- NOTE | 2017-10-28 14:30 | Infectious Disease Prog Note ---
Infectious Disease Subjective - Review of Systems Service Date: 10/28/17 Subjective: No change, no fever. Infectious Disease Objective - Results Result Diagrams: 10/26/17 00:25 10/27/17 06:10 Recent Labs: Laboratory Last Values WBC 3.4 Th/cmm (4.8-10.8) L 10/26/17 00:25 RBC 3.41 Mil/cmm (3.80-5.20) L 10/26/17 00:25 Hgb 10.6 gm/dL (12-16) L 10/26/17 00:25 Hct 32.5 % (41.0-60) L 10/26/17 00:25 MCV 95.2 fl (81-100) 10/26/17 00:25 MCH 31.1 pg (27.0-31.0) H 10/26/17 00:25 MCHC Differential 32.7 pg (28.0-36.0) 10/26/17 00:25 RDW 19.6 % (11.5-20.0) 10/26/17 00:25 Plt Count 228 Th/cmm (150-400) 10/26/17 00:25 MPV 7.9 fl 10/26/17 00:25 Band Neutrophils % 2 % (0-10) 10/26/17 00:25 Neutrophils (Manual) 68 % (40-80) 10/26/17 00:25 Lymphocytes 18 % (20-50) L 10/26/17 00:25 Monocytes 10 % (2-10) 10/26/17 00:25 Eosinophils 2 % (0-5) 10/26/17 00:25 Platelet Estimate ADEQUATE (NORMAL) 10/26/17 00:25 Sodium 135 mEq/L (136-145) L 10/27/17 06:10 Potassium 3.8 mEq/L (3.5-5.1) 10/27/17 06:10 Chloride 95 mEq/L (98-107) L 10/27/17 06:10 Carbon Dioxide 35.2 mEq/L (21.0-31.0) H 10/27/17 06:10 Anion Gap 8.6 (7.0-16.0) 10/27/17 06:10 BUN 12 mg/dL (7-25) 10/27/17 06:10 Creatinine 0.5 mg/dL (0.6-1.2) L 10/27/17 06:10 Est GFR ( Amer) TNP 10/27/17 06:10 Est GFR (Non-Af Amer) TNP 10/27/17 06:10 BUN/Creatinine Ratio 24.0 10/27/17 06:10 Glucose 79 mg/dL (70-105) 10/27/17 06:10 POC Glucose 86 MG/DL (70 - 105) 10/26/17 05:46 Whole Bld Lactic Acid 1.20 mmol/L (0.60-1.99) 10/26/17 00:25 Calcium 8.1 mg/dL (8.6-10.3) L 10/27/17 06:10 Creatine Kinase < 10 U/L (30-223) L 10/26/17 22:10 Troponin I 0.01 ng/mL (0.01-0.05) 10/26/17 22:10 B-Natriuretic Peptide 373.0 pg/mL (5.0-100.0) H 10/27/17 06:10 Triglycerides 78 mg/dL (<150) 10/26/17 06:15 Cholesterol 99 mg/dL (<200) 10/26/17 06:15 LDL Cholesterol Direct 47 mg/dL (75-193) L 10/26/17 06:15 HDL Cholesterol 41 mg/dL (23-92) 10/26/17 06:15 TSH 8.79 uIU/ml (0.34-5.60) H 10/26/17 06:15 - Physical Exam Vitals and I&O: Vital Signs Temp 98.9 F 10/28/17 12:00 Pulse 61 10/28/17 13:22 Resp 18 10/28/17 13:22 BP 145/58 10/28/17 12:00 Pulse Ox 93 10/28/17 13:22 Intake & Output 10/27/17 10/28/17 10/28/17 18:59 06:59 18:59 Intake Total 450 200 Balance 450 200 Weight (lbs) 47.446 kg 46.72 kg Intake: Oral 450 200 Other: # Voids 3 3 # Bowel Movements 2 Stool Characteristics Soft Weight Source Bedscale Bedscale Active Medications: Current Medications Acetaminophen (Tylenol) 650 mg PO Q4H PRN PRN Reason: Pain or Fever >101 Stop: 07/24/18 08:26 Acyclovir (Zovirax) 400 mg PO 5XD [facility] Stop: 12/25/17 17:59 Last Admin: 10/28/17 11:53 Dose: 400 mg Albuterol Sulfate (Albuterol 2.5mg/3ml Neb Ud) 2.5 mg HHN Q4HRT PRN PRN Reason: Shortness of Breath Stop: 12/25/17 08:38 Albuterol Sulfate (Albuterol 2.5mg/3ml Neb Ud) 2.5 mg HHN Q6HRT [facility] Stop: 12/25/17 12:59 Last Admin: 10/28/17 07:57 Dose: 2.5 mg Amiodarone HCl (Cordarone) 200 mg PO DAILY [facility] Stop: 12/25/17 08:59 Last Admin: 10/28/17 11:54 Dose: 200 mg Atorvastatin Calcium (Lipitor) 20 mg PO HS [facility] Stop: 12/25/17 20:59 Last Admin: 10/27/17 22:19 Dose: 20 mg Bisacodyl (Dulcolax 10 Mg Supp) 10 mg RC DAILY PRN PRN Reason: Constipation Stop: 12/25/17 08:26 Budesonide (Pulmicort) 0.5 mg HHN BIDRT [facility] Stop: 12/25/17 18:59 Last Admin: 10/28/17 07:58 Dose: 0.5 mg Diphenhydramine/Calamine/Camphor (Caladryl Lotion) 1 appl TP BID [facility] Stop: 12/25/17 08:59 Last Admin: 10/27/17 17:08 Dose: 1 appl Docusate Sodium (Colace) 100 mg PO DAILY [facility] Stop: 12/25/17 08:59 Last Admin: 10/28/17 11:54 Dose: 100 mg Estrogens Conjugated (Premarin) 0.9 mg PO DAILY [facility] Stop: 12/25/17 08:59 Last Admin: 10/27/17 13:24 Dose: 0.9 mg Folic Acid (Folate) 1 mg PO DAILY [facility] Stop: 12/25/17 08:59 Last Admin: 10/28/17 11:54 Dose: 1 mg Furosemide (Lasix) 10 mg PO DAILY [facility] Stop: 12/25/17 08:59 Last Admin: 10/28/17 11:58 Dose: 10 mg Sodium Chloride (Nacl 0.9%) 1,000 mls @ 50 mls/hr IV .Q20H [facility] Stop: 12/25/17 05:09 Last Infusion: 10/26/17 17:56 Dose: 50 mls/hr Levothyroxine Sodium (Synthroid) 0.1 mg PO QDAC [facility] Stop: 12/26/17 07:29 Last Admin: 10/28/17 06:33 Dose: 0.1 mg Magnesium Hydroxide (Milk Of Magnesia) 30 ml PO HS PRN PRN Reason: Constipation Stop: 12/25/17 08:26 Mesalamine (Pentasa) 500 mg PO BID [facility] Stop: 12/25/17 08:59 Last Admin: 10/28/17 11:53 Dose: 500 mg Methotrexate (Methotrexate) 10 mg PO Th@0900 [facility] PRN Reason: Protocol Stop: 12/31/17 08:59 Multivitamins/Vitamin C (Theragran) 1 tab PO DAILY [facility] Stop: 12/25/17 08:59 Last Admin: 10/28/17 11:54 Dose: 1 tab Mupirocin (Bactroban Oint) 1 appl NS BID [facility] Stop: 11/01/17 17:01 Potassium Chloride (Klor-Con) 20 meq PO DAILY [facility] Stop: 12/25/17 08:59 Last Admin: 10/28/17 11:55 Dose: 20 meq Rivaroxaban (Xarelto) 15 mg PO DAILY@1700 [facility] Stop: 12/25/17 16:59 Last Admin: 10/27/17 17:08 Dose: 15 mg Sodium Phosphate (Fleet Enema) 135 ml RC DAILY PRN PRN Reason: Constipation Stop: 12/25/17 08:26 Zolpidem Tartrate (Ambien) 10 mg PO HS PRN PRN Reason: Insomnia Stop: 12/25/17 08:45 Last Admin: 10/27/17 22:18 Dose: 10 mg General: no acute distress, well developed, well nourished HEENT: atraumatic, normocephalic, PERRLA, EOMI Neck: supple, no thyromegaly Cardiovascular: S1S2, regular Lungs: clear to auscultation bilaterally, clear to percussion Abdomen: soft, no tender, no distended Extremities: no cyanosis, no clubbing, no edema Neurological: awake, alert, oriented Skin: intact, rash (RLQ improving, bronish in color.) Infectious Disease Assmt/Plan - Assessment Assessment: 1. Right lower quadrant abdominal rash, not typical of shingles. No vesicular lesion. However, as there is dermatomal distribution and the characteristic of rash, cannot rule out shingles. 2. Depression. 3. Hypothymism. 4. Hyperlipidemia - Plan Plan: Continue Acyclovir. Nutritional Asmnt/Malnutr-PDOC - Dietary Evaluation Malnutrition Findings (Please click <Entered> for more info): Nutritional Asmnt/Malnutrition Start: 10/26/17 17: 09 Text: Status: Complete Freq: Document 10/26/17 17:09 JO ANN (Rec: 10/26/17 17:27 KASSIDY [id number]) Nutritional Asmnt/Malnutrition Patient General Information Nutritional Screening High Risk Diagnosis cardiomyopathy, anemia Pertinent Medical Hx/Surgical Hx medical hx not indicated in ER physician report at this time Subjective Information Pt seen lying in bed at time of visit, seemed drowsy, not able to comminucate. Pureed diet started at lunch. Current Diet Order/ Nutrition Support pureed GI Symptoms Skin Integrity/Comment: skin discorloration to lower leg, rash reddened Estimated Nutritional Goals BEE in Kcals: Using Current wt Calories/Kcals/Kg 27-32 Kcals Calculated 3129-1147 Protein: Using Current wt Protein g/k-1.2 Protein Calculated 45-54 Fluid: ml 1215-1440ml (1ml/kcal) Nutritional Problem No current Nutrition Prob Problem No nutrition problem at this time Malnutrition Alert Protein-Calorie Malnutrition N/A Is there a minimum of two criteria No selected? Query Text:Check all the applicable criteria. A minimum of two criteria are recommended for diagnosis of either severe or non-severe malnutrition. Intervention/Recommendation Comments 1. Continue with current diet as ordered. Assist pt with meal as needed. 2. Monitor PO intake, wt, labs and skin integrity 3. F/U as high risk in 2-3 days, 10/28-10/29 Expected Outcomes/Goals Expected Outcomes/Goals 1. PO intake to meet at least 75% of nutritional needs. 2. Wt stability, skin to remain intact, labs to approach WNL.
[2017-10-29] MEDS: Albuterol Nebulizer 2.5mg/3mL HHN SCH ×4 (00:38→19:05)
[2017-10-29] MEDS: Mesalamine 250 mg ER Cap PO SCH ×3 (01:20→16:53)
[2017-10-29] MEDS: Sodium Chloride 0.9% 1,000 ML IV SCH ×2 (01:22→20:42)
[2017-10-29] MEDS: Atorvastatin Calcium 10 MG TAB PO SCH ×2 (01:31→21:28)
[2017-10-29] MEDS: Budesonide 0.5 Mg/2 mL Ud HHN SCH ×2 (08:02→19:15)
[2017-10-29] MEDS: Levothyroxine 0.1 Mg Tab PO SCH (08:47)
[2017-10-29] MEDS: Multivitamin Tab PO SCH (09:29)
[2017-10-29] MEDS: Potassium Chloride 20 mEq ER Tab PO SCH (09:30)
--- NOTE | 2017-10-29 11:02 | General Progress Note ---
Subjective - Review of Systems Events since last encounter: no distress no change Objective - Results Result Diagrams: 10/26/17 00:25 10/27/17 06:10 Recent Labs: Laboratory Last Values WBC 3.4 Th/cmm (4.8-10.8) L 10/26/17 00:25 RBC 3.41 Mil/cmm (3.80-5.20) L 10/26/17 00:25 Hgb 10.6 gm/dL (12-16) L 10/26/17 00:25 Hct 32.5 % (41.0-60) L 10/26/17 00:25 MCV 95.2 fl (81-100) 10/26/17 00:25 MCH 31.1 pg (27.0-31.0) H 10/26/17 00:25 MCHC Differential 32.7 pg (28.0-36.0) 10/26/17 00:25 RDW 19.6 % (11.5-20.0) 10/26/17 00:25 Plt Count 228 Th/cmm (150-400) 10/26/17 00:25 MPV 7.9 fl 10/26/17 00:25 Band Neutrophils % 2 % (0-10) 10/26/17 00:25 Neutrophils (Manual) 68 % (40-80) 10/26/17 00:25 Lymphocytes 18 % (20-50) L 10/26/17 00:25 Monocytes 10 % (2-10) 10/26/17 00:25 Eosinophils 2 % (0-5) 10/26/17 00:25 Platelet Estimate ADEQUATE (NORMAL) 10/26/17 00:25 Sodium 135 mEq/L (136-145) L 10/27/17 06:10 Potassium 3.8 mEq/L (3.5-5.1) 10/27/17 06:10 Chloride 95 mEq/L (98-107) L 10/27/17 06:10 Carbon Dioxide 35.2 mEq/L (21.0-31.0) H 10/27/17 06:10 Anion Gap 8.6 (7.0-16.0) 10/27/17 06:10 BUN 12 mg/dL (7-25) 10/27/17 06:10 Creatinine 0.5 mg/dL (0.6-1.2) L 10/27/17 06:10 Est GFR ( Amer) TNP 10/27/17 06:10 Est GFR (Non-Af Amer) TNP 10/27/17 06:10 BUN/Creatinine Ratio 24.0 10/27/17 06:10 Glucose 79 mg/dL (70-105) 10/27/17 06:10 POC Glucose 86 MG/DL (70 - 105) 10/26/17 05:46 Whole Bld Lactic Acid 1.20 mmol/L (0.60-1.99) 10/26/17 00:25 Calcium 8.1 mg/dL (8.6-10.3) L 10/27/17 06:10 Creatine Kinase < 10 U/L (30-223) L 10/26/17 22:10 Troponin I 0.01 ng/mL (0.01-0.05) 10/26/17 22:10 B-Natriuretic Peptide 373.0 pg/mL (5.0-100.0) H 10/27/17 06:10 Triglycerides 78 mg/dL (<150) 10/26/17 06:15 Cholesterol 99 mg/dL (<200) 10/26/17 06:15 LDL Cholesterol Direct 47 mg/dL (75-193) L 10/26/17 06:15 HDL Cholesterol 41 mg/dL (23-92) 10/26/17 06:15 TSH 8.79 uIU/ml (0.34-5.60) H 10/26/17 06:15 - Physical Exam Vitals and I&O: Vital Signs Temp 97.5 F 10/29/17 07:59 Pulse 89 10/29/17 09:30 Resp 20 10/29/17 08:15 BP 163/95 10/29/17 09:28 Pulse Ox 95 10/29/17 08:15 Intake & Output 10/28/17 10/29/17 10/29/17 18:59 06:59 18:59 Intake Total 185 Balance 185 Weight (lbs) 46.72 kg 46.72 kg Intake: Oral 185 Other: Weight Source Estimated Bedscale Active Medications: Current Medications Acetaminophen (Tylenol) 650 mg PO Q4H PRN PRN Reason: Pain or Fever >101 Stop: 12/25/17 08:26 Acyclovir (Zovirax) 400 mg PO 5XD [facility] Stop: 12/25/17 17:59 Last Admin: 10/29/17 09:29 Dose: 400 mg Albuterol Sulfate (Albuterol 2.5mg/3ml Neb Ud) 2.5 mg HHN Q4HRT PRN PRN Reason: Shortness of Breath Stop: 12/25/17 08:38 Albuterol Sulfate (Albuterol 2.5mg/3ml Neb Ud) 2.5 mg HHN Q6HRT [facility] Stop: 12/25/17 12:59 Last Admin: 10/29/17 08:02 Dose: 2.5 mg Amiodarone HCl (Cordarone) 200 mg PO DAILY [facility] Stop: 12/25/17 08:59 Last Admin: 10/29/17 09:30 Dose: 200 mg Atorvastatin Calcium (Lipitor) 20 mg PO HS [facility] Stop: 12/25/17 20:59 Last Admin: 10/29/17 01:31 Dose: 20 mg Bisacodyl (Dulcolax 10 Mg Supp) 10 mg RC DAILY PRN PRN Reason: Constipation Stop: 12/25/17 08:26 Budesonide (Pulmicort) 0.5 mg HHN BIDRT [facility] Stop: 12/25/17 18:59 Last Admin: 10/29/17 08:02 Dose: 0.5 mg Diphenhydramine/Calamine/Camphor (Caladryl Lotion) 1 appl TP BID [facility] Stop: 12/25/17 08:59 Last Admin: 10/29/17 09:31 Dose: 1 appl Docusate Sodium (Colace) 100 mg PO DAILY [facility] Stop: 12/25/17 08:59 Last Admin: 10/29/17 09:29 Dose: 100 mg Estrogens Conjugated (Premarin) 0.9 mg PO DAILY [facility] Stop: 12/25/17 08:59 Last Admin: 10/29/17 09:31 Dose: 0.9 mg Folic Acid (Folate) 1 mg PO DAILY [facility] Stop: 12/25/17 08:59 Last Admin: 10/29/17 09:28 Dose: 1 mg Furosemide (Lasix) 10 mg PO DAILY [facility] Stop: 12/25/17 08:59 Last Admin: 10/29/17 09:28 Dose: 10 mg Sodium Chloride (Nacl 0.9%) 1,000 mls @ 50 mls/hr IV .Q20H [facility] Stop: 12/25/17 05:09 Last Admin: 10/29/17 01:22 Dose: 50 mls/hr Levothyroxine Sodium (Synthroid) 0.1 mg PO QDAC [facility] Stop: 12/26/17 07:29 Last Admin: 10/29/17 08:47 Dose: Not Given Lorazepam (Ativan) 0.5 mg IVP BID PRN; Protocol PRN Reason: Anxiety Stop: 12/28/17 00:09 Magnesium Hydroxide (Milk Of Magnesia) 30 ml PO HS PRN PRN Reason: Constipation Stop: 12/25/17 08:26 Mesalamine (Pentasa) 500 mg PO BID [facility] Stop: 12/25/17 08:59 Last Admin: 10/29/17 09:30 Dose: 500 mg Methotrexate (Methotrexate) 10 mg PO Th@0900 [facility] PRN Reason: Protocol Stop: 12/31/17 08:59 Multivitamins/Vitamin C (Theragran) 1 tab PO DAILY [facility] Stop: 12/25/17 08:59 Last Admin: 10/29/17 09:29 Dose: 1 tab Mupirocin (Bactroban Oint) 1 appl NS BID [facility] Stop: 11/01/17 17:01 Last Admin: 10/29/17 09:30 Dose: 1 appl Potassium Chloride (Klor-Con) 20 meq PO DAILY [facility] Stop: 12/25/17 08:59 Last Admin: 10/29/17 09:30 Dose: 20 meq Rivaroxaban (Xarelto) 15 mg PO DAILY@1700 [facility] Stop: 12/25/17 16:59 Last Admin: 10/29/17 01:28 Dose: Not Given Sodium Phosphate (Fleet Enema) 135 ml RC DAILY PRN PRN Reason: Constipation Stop: 12/25/17 08:26 Zolpidem Tartrate (Ambien) 10 mg PO HS PRN PRN Reason: Insomnia Stop: 12/25/17 08:45 Last Admin: 10/27/17 22:18 Dose: 10 mg Assessment/Plan - Assessment Assessment: 1. Right lower quadrant abdominal rash r/o shingles 2. Depression. 3. Hypothymism. 4. Hyperlipidemia - Plan Plan: id consult continue current orders Nutritional Asmnt/Malnutr-PDOC - Dietary Evaluation Malnutrition Findings (Please click <Entered> for more info): Nutritional Asmnt/Malnutrition Start: 10/26/17 17: 09 Text: Status: Complete Freq: Document 10/26/17 17:09 LCKASSIDYG (Rec: 10/26/17 17:27 [email or web address] [id number]) Nutritional Asmnt/Malnutrition Patient General Information Nutritional Screening High Risk Diagnosis cardiomyopathy, anemia Pertinent Medical Hx/Surgical Hx medical hx not indicated in ER physician report at this time Subjective Information Pt seen lying in bed at time of visit, seemed drowsy, not able to comminucate. Pureed diet started at lunch. Current Diet Order/ Nutrition Support pureed GI Symptoms Skin Integrity/Comment: skin discorloration to lower leg, rash reddened Estimated Nutritional Goals BEE in Kcals: Using Current wt Calories/Kcals/Kg 27-32 Kcals Calculated 3978-5326 Protein: Using Current wt Protein g/k-1.2 Protein Calculated 45-54 Fluid: ml 1215-1440ml (1ml/kcal) Nutritional Problem No current Nutrition Prob Problem No nutrition problem at this time Malnutrition Alert Protein-Calorie Malnutrition N/A Is there a minimum of two criteria No selected? Query Text:Check all the applicable criteria. A minimum of two criteria are recommended for diagnosis of either severe or non-severe malnutrition. Intervention/Recommendation Comments 1. Continue with current diet as ordered. Assist pt with meal as needed. 2. Monitor PO intake, wt, labs and skin integrity 3. F/U as high risk in 2-3 days, 10/28-10/29 Expected Outcomes/Goals Expected Outcomes/Goals 1. PO intake to meet at least 75% of nutritional needs. 2. Wt stability, skin to remain intact, labs to approach WNL.
[2017-10-29] MEDS: Meropenem 500 MG in Sodium Chloride 0.9% 100 ML IV SCH (18:17)
[2017-10-30] MEDS: Meropenem 500 MG in Sodium Chloride 0.9% 100 ML IV SCH ×3 (01:15→19:11)
[2017-10-30] MEDS: Albuterol Nebulizer 2.5mg/3mL HHN SCH ×4 (02:06→19:17)
[2017-10-30 06:46] LABS: HEMATOCRIT 30.3 % (41.0-60); HEMOGLOBIN 10.1 gm/dL (12-16); LYMPHOCYTE ABSOLUTE 0.7 Th/cmm (1.5-3.0); MEAN CELL VOLUME 95.6 fl (81-100); MEAN CORPUSCULAR HEMOGLOBIN 31.7 pg (27.0-31.0); MEAN CORPUSCULAR HGB CONC 33.2 pg (28.0-36.0); MEAN PLATELET VOLUME 8.7 fl; MONOCYTE ABSOLUTE 0.9 Th/cmm (0.3-1.0); NEUTROPHILE ABSOLUTE 3.1 Th/cmm (1.8-8.0); PLATELET COUNT 193 Th/cmm (150-400); RED BLOOD COUNT 3.17 Mil/cmm (3.80-5.20); RED CELL DISTRIBUTION WIDTH 20.1 % (11.5-20.0); WHITE BLOOD COUNT 4.7 Th/cmm (4.8-10.8)
[2017-10-30 07:00] LABS: % BASOPHILS 0.8 % (0.0-2.0); % EOSINOPHILS 0.6 % (0.0-5.0); % LYMPHOCYTES 14.2 % (20.0-50.0); % MONOCYTES 18.2 % (2.0-10.0); % NEUTROPHILS 66.2 % (40.0-80.0)
[2017-10-30 07:12] LABS: ANION GAP 8.7 (7.0-16.0); BUN - UREA NITROGEN 14 mg/dL (7-25); CALCIUM SERUM 8.4 mg/dL (8.6-10.3); CARBON DIOXIDE 34.2 mEq/L (21.0-31.0); CHLORIDE 98 mEq/L (98-107); CREATININE - SERUM 0.5 mg/dL (0.6-1.2); GLUCOSE 84 mg/dL (70-105); POTASSIUM SERUM 3.9 mEq/L (3.5-5.1); SODIUM SERUM 137 mEq/L (136-145)
[2017-10-30] MEDS: Budesonide 0.5 Mg/2 mL Ud HHN SCH ×2 (07:48→19:17)
[2017-10-30] MEDS ORDERED: Probiotic Screen MC PRN (09:00)
[2017-10-30] MEDS ORDERED: Lactobacillus Rhamnosus GG 15 Billion CFU CAP.SPRINK PO SCH (09:00)
[2017-10-30] MEDS: Potassium Chloride 20 mEq ER Tab PO SCH (10:41)
[2017-10-30] MEDS: Levothyroxine 0.1 Mg Tab PO SCH (10:42)
[2017-10-30] MEDS: Multivitamin Tab PO SCH (10:42)
[2017-10-30] MEDS: Mesalamine 250 mg ER Cap PO SCH ×2 (10:44→19:08)
--- NOTE | 2017-10-30 13:35 | Infectious Disease Prog Note ---
Infectious Disease Subjective - Review of Systems Service Date: 10/30/17 Subjective: No change, no fever. Infectious Disease Objective - Results Result Diagrams: 10/30/17 06:00 10/30/17 06:00 Recent Labs: Laboratory Last Values WBC 4.7 Th/cmm (4.8-10.8) L 10/30/17 06:00 RBC 3.17 Mil/cmm (3.80-5.20) L 10/30/17 06:00 Hgb 10.1 gm/dL (12-16) L 10/30/17 06:00 Hct 30.3 % (41.0-60) L 10/30/17 06:00 MCV 95.6 fl (81-100) 10/30/17 06:00 MCH 31.7 pg (27.0-31.0) H 10/30/17 06:00 MCHC Differential 33.2 pg (28.0-36.0) 10/30/17 06:00 RDW 20.1 % (11.5-20.0) H 10/30/17 06:00 Plt Count 193 Th/cmm (150-400) 10/30/17 06:00 MPV 8.7 fl 10/30/17 06:00 Neutrophils % 66.2 % (40.0-80.0) 10/30/17 06:00 Band Neutrophils % 2 % (0-10) 10/26/17 00:25 Lymphocytes % 14.2 % (20.0-50.0) L 10/30/17 06:00 Monocytes % 18.2 % (2.0-10.0) H 10/30/17 06:00 Eosinophils % 0.6 % (0.0-5.0) 10/30/17 06:00 Basophils % 0.8 % (0.0-2.0) 10/30/17 06:00 Neutrophils (Manual) 68 % (40-80) 10/26/17 00:25 Lymphocytes 18 % (20-50) L 10/26/17 00:25 Monocytes 10 % (2-10) 10/26/17 00:25 Eosinophils 2 % (0-5) 10/26/17 00:25 Platelet Estimate ADEQUATE (NORMAL) 10/26/17 00:25 Sodium 137 mEq/L (136-145) 10/30/17 06:00 Potassium 3.9 mEq/L (3.5-5.1) 10/30/17 06:00 Chloride 98 mEq/L (98-107) 10/30/17 06:00 Carbon Dioxide 34.2 mEq/L (21.0-31.0) H 10/30/17 06:00 Anion Gap 8.7 (7.0-16.0) 10/30/17 06:00 BUN 14 mg/dL (7-25) 10/30/17 06:00 Creatinine 0.5 mg/dL (0.6-1.2) L 10/30/17 06:00 Est GFR ( Amer) TNP 10/30/17 06:00 Est GFR (Non-Af Amer) TNP 10/30/17 06:00 BUN/Creatinine Ratio 28.0 10/30/17 06:00 Glucose 84 mg/dL (70-105) 10/30/17 06:00 POC Glucose 86 MG/DL (70 - 105) 10/26/17 05:46 Whole Bld Lactic Acid 1.20 mmol/L (0.60-1.99) 10/26/17 00:25 Calcium 8.4 mg/dL (8.6-10.3) L 10/30/17 06:00 Creatine Kinase < 10 U/L (30-223) L 10/26/17 22:10 Troponin I 0.01 ng/mL (0.01-0.05) 10/26/17 22:10 B-Natriuretic Peptide 373.0 pg/mL (5.0-100.0) H 10/27/17 06:10 Triglycerides 78 mg/dL (<150) 10/26/17 06:15 Cholesterol 99 mg/dL (<200) 10/26/17 06:15 LDL Cholesterol Direct 47 mg/dL (75-193) L 10/26/17 06:15 HDL Cholesterol 41 mg/dL (23-92) 10/26/17 06:15 TSH 8.79 uIU/ml (0.34-5.60) H 10/26/17 06:15 - Physical Exam Vitals and I&O: Vital Signs Temp 97.2 F 10/30/17 12:03 Pulse 92 10/30/17 12:03 Resp 18 10/30/17 12:03 BP 135/80 10/30/17 12:03 Pulse Ox 95 10/30/17 12:03 Intake & Output 10/29/17 10/30/17 10/30/17 18:59 06:59 18:59 Intake Total 500 1166.667 Balance 500 1166.667 Weight (lbs) 64.864 kg Intake: Intake, IV Amount 1166.667 Meropenem 500 mg In 200 Sodium Chloride 0.9% 100 ml @ 100 mls/hr IV Q8H [facility] Rx#:[id number] Sodium Chloride 0.9% 1, 966.667 000 ml @ 50 mls/hr IV . Q20H [facility] Rx#:[id number] Oral 500 Other: # Voids 2 # Bowel Movements 1 Weight Source Bedscale Active Medications: Current Medications Acetaminophen (Tylenol) 650 mg PO Q4H PRN PRN Reason: Pain or Fever >101 Stop: 12/25/17 08:26 Acyclovir (Zovirax) 400 mg PO 5XD [facility] Stop: 12/25/17 17:59 Last Admin: 10/29/17 14:35 Dose: 400 mg Albuterol Sulfate (Albuterol 2.5mg/3ml Neb Ud) 2.5 mg HHN Q4HRT PRN PRN Reason: Shortness of Breath Stop: 12/25/17 08:38 Albuterol Sulfate (Albuterol 2.5mg/3ml Neb Ud) 2.5 mg HHN Q6HRT [facility]AINE Stop: 12/25/17 12:59 Last Admin: 10/30/17 07:48 Dose: 2.5 mg Amiodarone HCl (Cordarone) 200 mg PO DAILY [facility]AINE Stop: 12/25/17 08:59 Last Admin: 10/30/17 10:41 Dose: 200 mg Atorvastatin Calcium (Lipitor) 20 mg PO HS [facility] Stop: 12/25/17 20:59 Last Admin: 10/29/17 21:28 Dose: 20 mg Bisacodyl (Dulcolax 10 Mg Supp) 10 mg RC DAILY PRN PRN Reason: Constipation Stop: 12/25/17 08:26 Budesonide (Pulmicort) 0.5 mg HHN BIDRT [facility]AINE Stop: 12/25/17 18:59 Last Admin: 10/30/17 07:48 Dose: 0.5 mg Diphenhydramine/Calamine/Camphor (Caladryl Lotion) 1 appl TP BID [facility]AINE Stop: 12/25/17 08:59 Last Admin: 10/30/17 10:53 Dose: 1 appl Docusate Sodium (Colace) 100 mg PO DAILY ORMAINE Stop: 12/25/17 08:59 Last Admin: 10/30/17 10:42 Dose: 100 mg Estrogens Conjugated (Premarin) 0.9 mg PO DAILY ROMAINE Stop: 12/25/17 08:59 Last Admin: 10/30/17 10:51 Dose: 0.9 mg Folic Acid (Folate) 1 mg PO DAILY ROMAINE Stop: 12/25/17 08:59 Last Admin: 10/30/17 10:51 Dose: 1 mg Furosemide (Lasix) 10 mg PO DAILY [facility]AINE Stop: 12/25/17 08:59 Last Admin: 10/30/17 10:50 Dose: 10 mg Sodium Chloride (Nacl 0.9%) 1,000 mls @ 50 mls/hr IV .Q20H [facility]AINE Stop: 12/25/17 05:09 Last Admin: 10/29/17 20:42 Dose: 50 mls/hr Meropenem 500 mg/ Sodium (Chloride) 100 mls @ 100 mls/hr IV Q8H [facility] Stop: 12/28/17 17:59 Last Admin: 10/30/17 10:52 Dose: 100 mls/hr Lactobacillus Rhamnosus (Culturelle 15b) 1 each PO DAILY ROMAINE Stop: 12/29/17 08:59 Last Admin: 10/30/17 10:50 Dose: 1 each Levothyroxine Sodium (Synthroid) 0.1 mg PO QDAC [facility]AINE Stop: 12/26/17 07:29 Last Admin: 10/30/17 10:42 Dose: 0.1 mg Lorazepam (Ativan) 0.5 mg IVP BID PRN; Protocol PRN Reason: Anxiety Stop: 12/28/17 00:09 Last Admin: 10/30/17 03:14 Dose: 0.5 mg Magnesium Hydroxide (Milk Of Magnesia) 30 ml PO HS PRN PRN Reason: Constipation Stop: 12/25/17 08:26 Mesalamine (Pentasa) 500 mg PO BID ROMAINE Stop: 12/25/17 08:59 Last Admin: 10/30/17 10:44 Dose: 500 mg Methotrexate (Methotrexate) 10 mg PO Th@0900 ROMAINE PRN Reason: Protocol Stop: 12/31/17 08:59 Miscellaneous (Probiotic Screen) 1 ea MC PRN PRN PRN Reason: PROTOCOL Stop: 12/29/17 08:59 Multivitamins/Vitamin C (Theragran) 1 tab PO DAILY ROMAINE Stop: 12/25/17 08:59 Last Admin: 10/30/17 10:42 Dose: 1 tab Mupirocin (Bactroban Oint) 1 appl NS BID [facility] Stop: 11/01/17 17:01 Last Admin: 10/30/17 10:52 Dose: 1 appl Potassium Chloride (Klor-Con) 20 meq PO DAILY [facility]AINE Stop: 12/25/17 08:59 Last Admin: 10/30/17 10:41 Dose: 20 meq Rivaroxaban (Xarelto) 15 mg PO DAILY@1700 [facility] Stop: 12/25/17 16:59 Last Admin: 10/29/17 16:52 Dose: 15 mg Sodium Phosphate (Fleet Enema) 135 ml RC DAILY PRN PRN Reason: Constipation Stop: 12/25/17 08:26 Zolpidem Tartrate (Ambien) 10 mg PO HS PRN PRN Reason: Insomnia Stop: 12/25/17 08:45 Last Admin: 10/27/17 22:18 Dose: 10 mg General: no acute distress, cachectic HEENT: atraumatic, normocephalic, PERRLA, EOMI Neck: supple, no thyromegaly, no lymphadenopathy, no rigid Cardiovascular: S1S2, regular Lungs: clear to auscultation bilaterally, clear to percussion Abdomen: soft, no tender, no distended Extremities: no cyanosis, no clubbing Neurological: awake, alert, oriented Skin: intact Infectious Disease Assmt/Plan - Assessment Assessment: 1. Right lower quadrant abdominal rash, not typical of shingles. No vesicular lesion. However, as there is dermatomal distribution and the characteristic of rash, cannot rule out shingles. 2. Depression. 3. Hypothymism. 4. Hyperlipidemia. 5. UTI - ESBL E coli. 6 . MRSA Colonization. - Plan Plan: Continue Acyclovir x 2 more days.. Started meropenem. May change meropenem to invanz 500mg iv q8 for 5 more days. DC patinent ot SNF. Dc isolation. Nutritional Asmnt/Malnutr-PDOC - Dietary Evaluation Malnutrition Findings (Please click <Entered> for more info): Nutritional Asmnt/Malnutrition Start: 10/26/17 17: 09 Text: Status: Complete Freq: Document 10/26/17 17:09 HENG (Rec: 10/26/17 17:27 [id number] [id number]) Nutritional Asmnt/Malnutrition Patient General Information Nutritional Screening High Risk Diagnosis cardiomyopathy, anemia Pertinent Medical Hx/Surgical Hx medical hx not indicated in ER physician report at this time Subjective Information Pt seen lying in bed at time of visit, seemed drowsy, not able to comminucate. Pureed diet started at lunch. Current Diet Order/ Nutrition Support pureed GI Symptoms Skin Integrity/Comment: skin discorloration to lower leg, rash reddened Estimated Nutritional Goals BEE in Kcals: Using Current wt Calories/Kcals/Kg 27-32 Kcals Calculated 0610-5079 Protein: Using Current wt Protein g/k-1.2 Protein Calculated 45-54 Fluid: ml 1215-1440ml (1ml/kcal) Nutritional Problem No current Nutrition Prob Problem No nutrition problem at this time Malnutrition Alert Protein-Calorie Malnutrition N/A Is there a minimum of two criteria No selected? Query Text:Check all the applicable criteria. A minimum of two criteria are recommended for diagnosis of either severe or non-severe malnutrition. Intervention/Recommendation Comments 1. Continue with current diet as ordered. Assist pt with meal as needed. 2. Monitor PO intake, wt, labs and skin integrity 3. F/U as high risk in 2-3 days, 10/28-10/29 Expected Outcomes/Goals Expected Outcomes/Goals 1. PO intake to meet at least 75% of nutritional needs. 2. Wt stability, skin to remain intact, labs to approach WNL.
--- NOTE | 2017-10-31 17:26 | Cardiology ---
10/27/[address] Wills. M-MODE ECHOCARDIOGRAM: Mitral valve, anterior leaflet of mitral valve shows normal excursion, EF velocity. Posterior leaflet of mitral valve shows normal excursion. Left ventricular posterior wall shows increased thickness, normal excursion. Interventricular septum shows increased thickness, normal excursion. Hypertrophy of the left ventricle, ejection fraction 60%. Left atrium enlarged 4.2 cm. Aortic root shows normal dimension, normal excursion of aortic leaflets. CONCLUSION: Hypertrophy of the left ventricle, ejection fraction 60%, left atrial enlargement. 2D ECHO: Long axis view shows enlarged left ventricular cavity with decreased ejection fraction. Mitral valve shows normal excursion. There is hypertrophy of the left ventricle, ejection fraction 60%. Left atrium enlarged. Aortic root shows normal dimension, normal excursion of aortic leaflets. Short axis view of mitral valve normal. Short axis view of aortic valve normal. Apical four chamber view shows hypertrophy of the left ventricle. Left atrium enlarged. Right ventricular cavity, right atrium enlarged. CONCLUSION: Hypertrophy of the left ventricle, left atrial enlargement, right atrial enlargement, ejection fraction 60%. Doppler study shows mild mitral regurgitation, mild tricuspid regurgitation, mild pulmonary regurgitation. JOB# [id number]
--- NOTE | 2017-11-09 19:08 | Discharge Summary ---
DATE OF DISCHARGE: 10/30/2017 HOSPITAL COURSE: The patient was admitted on 10/26/2017 to [facility] and discharge on 10/30/2017. An 83-year-old female patient known to have history of atrial fibrillation with difficulty walking, hypothyroidism, hypertension, hyperlipidemia, history of heart failure, ulcerative colitis; was admitted for right lower quadrant pain, abdominal rash and shingles, depression, these were all treated and the patient improved and the patient was in stable condition. On 10/30/2017, [facility]; however, the prognosis is guarded because of her advanced cardiomyopathy and I will be following the patient in the snf. CONDITION AT THE TIME OF DISCHARGE: Stable. [facility]# [id number]
== END 2017-10-30 20:00 | DRG 595 ==
LOC: ER 22:50 → MSI 10-26 04:30
PROVIDERS: ADMIT Internal Medicine; ATTEND Internal Medicine
DX: B02.9 Zoster without complications (principal); E41 Nutritional marasmus; K51.90 Ulcerative colitis, unspecified, without complications; I50.22 Chronic systolic (congestive) heart failure; N39.0 Urinary tract infection, site not specified; E87.1 Hypo-osmolality and hyponatremia; I42.8 Other cardiomyopathies; R21 Rash and other nonspecific skin eruption; I11.0 Hypertensive heart disease with heart failure; J44.9 Chronic obstructive pulmonary disease, unspecified; E78.5 Hyperlipidemia, unspecified; E03.9 Hypothyroidism, unspecified; F32.9 Major depressive disorder, single episode, unspecified; M06.9 Rheumatoid arthritis, unspecified; R13.10 Dysphagia, unspecified; D63.8 Anemia in other chronic diseases classified elsewhere; I48.2 Chronic atrial fibrillation; Z68.26 Body mass index [BMI] 26.0-26.9, adult; B96.20 Unspecified Escherichia coli [E. coli] as the cause of diseases classified elsewhere; Z16.12 Extended spectrum beta lactamase (ESBL) resistance; Z22.322 Carrier or suspected carrier of Methicillin resistant Staphylococcus aureus
CPT/HCPCS: 36415-UA; 80048-TC; 80061-TC; 82550-TC; 82948-90; 83605; 83880-TC; 84443-TC; 84484-TC; 85007-TC; 85025-TC; 85027-TC; 87086-90; 93005; 94760; J1630; J2060; J2185; J7030; J7613; Z7610